=== PATIENT | female | born 2000 | race Caucasian/White ===

== ENCOUNTER 2020-05-02 20:23 | Emergency (ER) | payer OTHER, MEDICAID, SELFPAY ==
[2020-05-02 17:21] VITALS: BMI 17.9
[2020-05-02 20:24] VITALS: BP 141/103; PULSE 94; RESP 15; TEMP 35.9; O2SAT 99; BMI 18.3
--- NOTE | 2020-05-02 20:42 | ED.DCSUM_ITS ---
History of Present Illness Chief Complaint: Complaint Informant: Patient Narrative: 19-year-old female states that earlier today she was seen in urgent care and diagnosed with a UTI. She was placed on Macrobid and Azo. She tells me that she is urinating all blood. She notes some small clots. She denies any urinary retention. She is also developed some diarrhea. She denies any fever cough shortness of breath sore throat headache myalgias or loss of taste and smell. She notes lower abdominal discomfort. No back discomfort. Past Medical History - Allergies and Home Meds Allergies/Adverse Reactions: Allergies No Known Allergies Allergy (Unverified 05/02/20 20:27) Primary Care Physician: [facility] Doctor,Out of [NON-STAFF] - Past Medical History: None Surgical History: noncontributory Alcohol: None Drugs: None Review of Systems General: Denies: Chills, Fever, Sweats Eyes: Denies: Visual changes - bilaterally, Diplopia ENT: Denies: Rhinorrhea, Sore throat Cardiovascular: Denies: Chest pain, Palpitations Respiratory: Denies: Dyspnea, Cough, Dyspnea on exertion Gastrointestinal: Reports: Abdominal pain, Diarrhea. Denies: Nausea, Vomiting, Melena, Hematochezia Genitourinary: Reports: Dysuria, Hematuria, Frequency Musculoskeletal: Denies: Back pain, Extremity Pain Skin: Denies: Rash, Wounds Neurological: Denies: Headache, Weakness, Numbness Physical Exam Vital Signs/Narrative: Vital Signs Temp Pulse Resp BP Pulse Ox 05/02/20 20:24 96.7 F L 94 15 141/103 H 99 Inital Vital Signs reviewed: Yes General: Well nourished, Well developed, No Acute Distress Head: Normocephalic, Atraumatic Eyes: Perrl, EOMI ENT: Moist mucous membranes, No rhinorrhea Neck: Supple, Nontender Cardiovascular: Regular rate, Regular rhythm, No murmurs Respiratory: No distress, CTA bilaterally, Chest nontender Abdomen: Soft, Nontender, Nondistended, Normal bowel sounds Back: Nontender, Normal Inspection Extremities: Nontender, No edema Skin: Normal color, No rash Neurological: Alert, Oriented x3, Cranial nerves II-XII grossly intact, Normal Strength, Normal Sensation Psychological: Normal affect, Normal Mood Diagnostic/Tx/Re-eval Laboratory Last Values Urine Color Red (Yellow) 05/02/20 20:25 Urine Clarity Turbid (Clear) 05/02/20 20:25 Urine pH 7.0 (5.0 - 8.0) 05/02/20 20:25 Ur Specific [place] 1.010 (1.002-1.030) 05/02/20 20:25 Urine Protein 500 mg/dl (Negative) H 05/02/20 20:25 Urine Glucose (UA) Normal mg/dl (Normal) 05/02/20 20: Urine Ketones 15 mg/dl (Negative) H 05/02/20 20:25 Urine Occult Blood 250 /ul (Negative) H 05/02/20 20:25 Urine Nitrite Negative (Negative) 05/02/20: Urine Bilirubin 1 mg/dL (Negative) H 05/02/20 20: Urine Urobilinogen Normal mg/dl (Normal) 05/02/20 20:25 Ur Leukocyte Esterase 25 /ul (Negative) H 05/02/20 20:25 Urine RBC > 100 SEEN /hpf (0-5) 05/02/20 20: Urine WBC 10-25 SEEN /hpf (0-5) 05/02/20 20:25 Ur Squamous Epith Cells 0 SEEN /hpf (5-10) 05/02/20 20:25 Urine Bacteria 0 SEEN /hpf (None Seen) 05/02/20 20:25 Urine Mucus 0 SEEN /hpf (<or=2+) 05/02/20 20:25 - Medical Decision Making Patient should continue her antibiotic. She was encouraged to drink plenty of fluids. Should she develop urinary retention she was advised that she would need to return to emergency for catheter. If her symptoms are not resolving she will be referred to urology. ED Disposition - Plan for ED Patient: Disposition: Home or Assisted Living Diagnosis: Acute hemorrhagic cystitis Instructions: ED Hematuria, ED Bladder Infection, Female (Adult) Referrals: Elle Harrington MD [STAFF PHYSICIAN] - 3-5 Days if not improving
[2020-05-02 20:51] LABS: Bacteria 0 SEEN /hpf (None Seen); Mucous, Urine 0 SEEN /hpf (<or=2+); Squamous Epithelial Cells - UA 0 SEEN /hpf (5-10)
[2020-05-02 21:14] LABS: Color, Urine Red (Yellow); Glucose, Dipstick Normal (Normal); Ketone-Dipstick 15 mg/dl (Negative); Leukocyte Esterase-Dipstick 25 /ul (Negative); Nitrite-Dipstick Negative (Negative); Occult Blood-Urine 250 /ul (Negative); Protein-Dipstick 500 mg/dl (Negative); Urine Clarity Turbid (Clear); Urine Urobilinogen Normal (Normal)
[2020-05-02 21:16] LABS: Urine Bilirubin Dipstick 1 mg/dL (Negative)
[2020-05-02 21:39] LABS: Red Blood Cells-Urine > 100 SEEN /hpf (0-5); White Blood Cells 10-25 SEEN /hpf (0-5)
== END 2020-05-02 22:02 | disposition home or self-care (01) ==
PROVIDERS: Emergency Provider Emergency Medicine
DX: N30.01 Acute cystitis with hematuria (principal)
CPT/HCPCS: 81001; 99282

== ENCOUNTER → 2020-05-03 09:57 | Outpatient (CLI) | payer OTHER, MEDICAID, SELFPAY ==
[2020-05-02 20:24] VITALS: BMI 18.3
[2020-05-03 10:42] LABS: Color, Urine Red (Yellow); Glucose, Dipstick Normal (Normal); Ketone-Dipstick 5 mg/dl (Negative); Leukocyte Esterase-Dipstick 100 /ul (Negative); Nitrite-Dipstick Positive (Negative); Occult Blood-Urine 250 /ul (Negative); Protein-Dipstick 100 mg/dl (Negative); Urine Bilirubin Dipstick Negative (Negative); Urine Clarity Sl. Cloudy (Clear); Urine Urobilinogen Normal (Normal)
[2020-05-03 10:58] LABS: Bacteria 2+ /hpf (None Seen); Mucous, Urine RARE /hpf (<or=2+); Red Blood Cells-Urine 5-10 SEEN /hpf (0-5); Squamous Epithelial Cells - UA 0-5 SEEN /hpf (5-10); White Blood Cells 0-5 SEEN /hpf (0-5)
== END ==
PROVIDERS: Referring Provider Physician Assistant Surgical; Visit Provider Physician Assistant Surgical
DX: N30.01 Acute cystitis with hematuria (principal)
CPT/HCPCS: 81001; 87086; 87088; 87186

== ENCOUNTER → 2022-02-23 | Outpatient (CLI) | payer OTHER, MEDICAID, SELFPAY ==
[2022-02-27 04:07] LABS: Chlamydia By Nucleic Acid AMP Negative (Negative)
[2022-02-27 17:51] LABS: Gonococcus By Nucleic Acid AMP Negative (Negative)
== END | disposition home or self-care (01) ==
LOC: LABSPEC 16:03
PROVIDERS: Visit Provider Student in an Organized Health Care Education/Training Program
DX: Z11.3 Encounter for screening for infections with a predominantly sexual mode of transmission (principal)
CPT/HCPCS: 87491; 87591

== ENCOUNTER → 2022-06-05 | Outpatient (CLI) | payer OTHER, SELFPAY ==
[2022-06-11 14:39] LABS: HPV Reflexed? NOT INDICATED
== END | disposition home or self-care (01) ==
LOC: LABSPEC 15:43
PROVIDERS: Visit Provider Student in an Organized Health Care Education/Training Program
DX: Z12.4 Encounter for screening for malignant neoplasm of cervix (principal)
CPT/HCPCS: 88175; G0145